=== PATIENT | male | born 1950 | race Caucasian/White ===

== ENCOUNTER → 2017-08-24 | Outpatient (CLI) | payer OTHER ==
[~2017-08-24] MED LIST: ADV250/50 INH; ALB0.5 INH; CYC10 PO; DUL30 PO; HYD2 PO; HYDR-3503 PO; HYDR2TAB41 PO; LEVO50TA80 PO; NAPR-733 PO; OLME5TAB8 PO; PRA20 PO; PREG75CA61 PO; RIZA10 PO; ZOLP-350 PO
--- NOTE | 2017-08-24 19:03 | RT STRESS TEST REPORT ---
FACILITY: [facility] - [place] PATIENT NAME: DENIZ TELLEZ : [id number] MR: [id number] V: [id number] EXAM DATE: ORDERING PHYSICIAN: JUAN HATHAWAY TECHNOLOGIST: REBECA Acquisition Time: 2017-08-24 14:19:10 Total Exercise Time: 00:07:14 Test Indications: Chest Pain / Discomfort Medications: allopurinol losartan levothyroxine monteleukast proair lyrica hyrdrocodone Protocol: BRUCE2 Max HR: 142 BPM 91% of Pred: 155 BPM Max BP: 175/077 mmHG Max Work Load: 8.8 METS Consider nuclear stress test Confirmed by AARON NICOLE ([id number]) on 08/24/2017 7:01:38 PM Referred By: Juan Hathaway Overread By: AARON NICOLE
== END ==
LOC: RESP 14:16
PROVIDERS: ATTEND Physician Assistant
DX: R94.31 Abnormal electrocardiogram [ECG] [EKG] (principal)
CPT/HCPCS: 93017

== ENCOUNTER → 2017-10-04 | Outpatient (CLI) | payer OTHER ==
--- NOTE | 2017-10-04 16:00 | RT STRESS TEST REPORT ---
FACILITY: [facility] PATIENT NAME: DENIZ TELLEZ : [id number] MR: [id number] V: [id number] EXAM DATE: ORDERING PHYSICIAN: JUAN JALLOH TECHNOLOGIST: Oscar Acquisition Time: 2017-10-04 14:18:03 Total Exercise Time: 00:08:20 Test Indications: Chest Discomfort Medications: see nuc med sheet Protocol: MELLISSA 2 Max HR: 148 BPM 95% of Pred: 155 BPM Max BP: 159/095 mmHG Max Work Load: 10.1 METS The patient did not have any chest pain during the test. He had no ST depression, but some mild infe rior T flattening. He had good heart rate recovery. There were asymptomatic PVC's noted at the higher exercise intensities. Low to moderate risk. See the nuclear images for details. Confirmed by DONNA DIAZ ([id number]) on 10/04/2017 4:00:11 PM Referred By: Rivas Overread By: DONNA DIAZ
--- NOTE | 2017-10-05 08:40 | RADIOLOGY IMAGING REPORT ---
FACILITY: [facility] PATIENT NAME: Jamie Mccormack : 1950 MR: [id number] V: [id number] EXAM DATE: ORDERING PHYSICIAN: JUAN JALLOH TECHNOLOGIST: Location: [facility] Patient: Jamie Mccormack : 1950 Visit/Account:[id number] Date of Sevice: 10/04/2017 EXAMINATION: Single Isotope SPECT Imaging with Exercise and Gated SPECT Imaging DATE OF EXAMINATION: 10/04/17 DATE OF INTERPRETATION: 10/05/17 REQUESTING PHYSICIAN: JUAN JALLOH INDICATION: The patient is a 67-year-old M evaluated for chest discomfort. PROCEDURE: After informed consent the patient received an intravenous injection of 12.2 mCi of Tc-9 9m sestamibi followed at the appropriate time interval by rest imaging. The patient then exercised a ccording to the standard Ranjith protocol for 8 minutes achieving 10 METS. Resting heart rate was 62 b pm with a peak heart rate of 148 bpm which is 95 % of maximal predicted heart rate for age. Blood p ressure at rest was 133 / 90; blood pressure during exercise was 159 / 95. There was no chest pain d uring exercise. Exercise was discontinued because of fatigue. Baseline EKG demonstrates sinus rhyth m. There were no EKG changes of ischemia at peak exercise. Approximately one minute and 30 seconds prior to the termination of exercise, the patient received an intravenous injection of 30.1 mCi of Tc -99m sestamibi followed by stress imaging. RAW DATA: Examination of the summed raw data revealed a fair quality study. MYOCARDIAL PERFUSION: The tomographic images demonstrate a small inferior defect at rest that is mod erate in severity. This resolves in the prone imaging, consistent with diaphragmatic attenuation. The re is no TID. GATED IMAGES: The gated images demonstrate hyperdynamic ejection fraction >70% with normal wall aubree on and thickening IMPRESSION: 1. Normal treadmill ECG. 2. Normal myocardial perfusion scan with diaphragmatic attenuation. 3. Hyperdynamic LV systolic function; LVEF >70%. 4. Based on the results of this exam, the patient appears to be at low risk for future cardiovascular events. Report Dictated By: Dallin Guzman at 10/05/2017 8:20 AM Report E-Signed By: Dallin Guzman at 10/05/2017 8:24 AM WSN:[id number]
== END ==
LOC: RESP 02:15
PROVIDERS: ATTEND Physician Assistant
DX: R94.30 Abnormal result of cardiovascular function study, unspecified (principal)
CPT/HCPCS: 78452; 93017; A9500

== ENCOUNTER → 2017-11-06 | Outpatient (REF) | payer OTHER | LOC: ZZSENDIN 10:00 | PROVIDERS: ATTEND Physician Assistant | DX: L57.0 Actinic keratosis (principal) | CPT/HCPCS: 88305; 88344 ==

== ENCOUNTER → 2018-08-27 | Outpatient (REF) | payer OTHER ==
[2018-08-27 11:50] LABS: LDL CHOLESTEROL 135 mg/dl
== END ==
LOC: ZZSENDIN 10:43
PROVIDERS: ATTEND Physician Assistant
DX: E78.5 Hyperlipidemia, unspecified (principal); R53.83 Other fatigue
CPT/HCPCS: 82040; 82247; 82310; 82374; 82435; 82465; 82565; 82947; 83718; 84075; 84132; 84155; 84295; 84450; 84460; 84478; 84520

== ENCOUNTER → 2019-03-21 | Outpatient (CLI) | payer OTHER | LOC: ZZSENDIN 13:11 | PROVIDERS: ATTEND Physician Assistant | DX: M79.10 Myalgia, unspecified site (principal) | CPT/HCPCS: 85651 ==